=== PATIENT | male | born 2000 | race Caucasian/White ===

== ENCOUNTER 2023-05-28 21:43 | Emergency (ER) | payer OTHER ==
[~2023-05-28] VITALS: Ht 182.9 cm; Wt 103.2 kg
[2023-05-28 21:47] VITALS: BP 138/66; TEMP 99.3
[2023-05-28 22:48] VITALS: PULSE 80
== END 2023-05-28 22:48 | disposition home or self-care (01) ==
LOC: COL.ER 21:43
DX: J10.1 Influenza due to other identified influenza virus with other respiratory manifestations (principal); F17.290 Nicotine dependence, other tobacco product, uncomplicated